=== PATIENT | male | born 1990 | race Caucasian/White ===

== ENCOUNTER 2020-04-19 14:17 | Emergency (ER) | payer BC ==
[2020-04-19 14:24] VITALS: BP 164/114; PULSE 106
[2020-04-19] MEDS ORDERED: Aspirin 81 MG Tab.Chew PO ONE (15:12)
[2020-04-19] MEDS ORDERED: LORazepam 1 MG Tab PO ONE (15:12)
--- NOTE | 2020-04-19 15:44 | EDM.PDOC ---
ED HPI GENERAL MEDICAL PROBLEM - General Chief Complaint: Chest Pain Stated Complaint: CHEST PAIN AND RAPID HEART RATE Time Seen by Provider: 04/19/20 15:03 Source of Information: Reports: Patient, RN Notes Reviewed History Limitations: Reports: No Limitations - History of Present Illness INITIAL COMMENTS - FREE TEXT/NARRATIVE: Patient is a 29-year-old male presenting to the emergency department with complaints of left-sided chest pain, pain in his left neck, and tingling down his left arm. Onset of symptoms were proximate 1300 this afternoon. He had worsening of symptoms after he was done a lunch. He states that he is been under quite a bit of stress lately. He is currently going through divorce. He has had mild episodes similar to this but nothing ever to this extent. He states that he does feel anxious. He has intermittent palpitations in his chest. He denies any significant cardiac history. Left Chest Pain Score (Numeric/FACES): 2 - Related Data Allergies Allergy/AdvReac Type Severity Reaction Status Date / Time acetaminophen [From Percocet] Allergy Disorientat Verified 04/19/20 14:25 ion oxycodone HCl [From Percocet] Allergy Disorientat Verified 04/19/20 14:25 ion Home Meds: Home Meds LORazepam [Ativan] 0.5 mg PO TID PRN #10 tab 04/19/20 [Rx] Ranitidine HCl 150 mg PO DAILY 04/19/20 [History] Past Medical History - Past Health History Medical/Surgical History: Denies Medical/Surgical History HEENT History: Reports: Epistaxis Social & Family History - Family History Family Medical History: No Pertinent Family History - Tobacco Use Tobacco Use Status *Q: Current Every Day Tobacco User Years of Tobacco use: 15 Packs/Tins Daily: 1 - Caffeine Use Caffeine Use: Reports: None - Recreational Drug Use Recreational Drug Use: No ED ROS GENERAL - Review of Systems Review Of Systems: See Below Constitutional: Reports: No Symptoms. Denies: Fever, Chills, Weakness HEENT: Reports: No Symptoms Respiratory: Reports: Shortness of Breath. Denies: Cough Cardiovascular: Reports: Chest Pain, Palpitations. Denies: Dyspnea on Exertion, Lightheadedness, Syncope Endocrine: Reports: No Symptoms GI/Abdominal: Reports: No Symptoms. Denies: Abdominal Pain, Nausea, Vomiting : Reports: No Symptoms Musculoskeletal: Reports: No Symptoms Skin: Reports: No Symptoms Neurological: Reports: Paresthesia (Tingling in his left arm) Psychiatric: Reports: No Symptoms Hematologic/Lymphatic: Reports: No Symptoms Immunologic: Reports: No Symptoms ED EXAM, GENERAL - Physical Exam Exam: See Below General Appearance: Alert, WD/WN, Anxious Respiratory/Chest: No Respiratory Distress, Lungs Clear, Normal Breath Sounds, No Accessory Muscle Use, Chest Non-Tender Cardiovascular: Normal Peripheral Pulses, Regular Rate, Rhythm, No Edema, No Gallop, No JVD, No Murmur, No Rub Neurological: Alert, Oriented, CN II-XII Intact, Normal Cognition, Normal Gait, Normal Reflexes, No Motor/Sensory Deficits Psychiatric: Normal Affect, Normal Mood Skin Exam: Warm, Dry, Intact, Normal Color, No Rash #1 Interpretation EKG Date: 04/19/20 Time: 14:31 Rhythm: NSR Rate (Beats/Min): 96 [place]: Normal P-Wave: Present QRS: Normal ST-T: Normal QT: Normal Course - Vital Signs Last Recorded V/S: Last Vital Signs Temp 97.0 F 04/19/20 14:21 Pulse 106 H 04/19/20 14:21 Resp 20 04/19/20 14:21 BP 164/114 H 04/19/20 14:21 Pulse Ox 99 04/19/20 14:21 - Orders/Labs/Meds Orders: Active Orders 24 hr Category Date Time Status EKG Documentation Completion [RC] ASDIRECTED Care 04/19/20 14:36 Active EKG 12 Lead [EK] Stat Ther 04/19/20 14:31 Ordered Labs: Laboratory Tests 04/19/20 04/19/20 04/19/20 Range/Units 15:25 15:25 15:25 WBC 8.81 (4.23-9.07) K/mm3 RBC 4.95 (4.63-6.08) M/mm3 Hgb 15.8 (13.7-17.5) gm/dl Hct 47.0 (40.1-51.0) % MCV 94.9 H (79.0-92.2) fl MCH 31.9 (25.7-32.2) pg MCHC 33.6 (32.2-35.5) g/dl RDW Std Deviation 43.8 (35.1-43.9) fL Plt Count 199 (163-337) K/mm3 MPV 11.2 (9.4-12.3) fl Neut % (Auto) 77.7 H (34.0-67.9) % Lymph % (Auto) 12.1 L (21.8-53.1) % [place] % (Auto) 9.1 (5.3-12.2) % Eos % (Auto) 0.7 L (0.8-7.0) Baso % (Auto) 0.2 (0.1-1.2) % Neut # (Auto) 6.84 H (1.78-5.38) K/mm3 Lymph # (Auto) 1.07 L (1.32-3.57) K/mm3 [place] # (Auto) 0.80 (0.30-0.82) K/mm3 Eos # (Auto) 0.06 (0.04-0.54) K/mm3 Baso # (Auto) 0.02 (0.01-0.08) K/mm3 D-Dimer, Quantitative < 0.19 L (0.19-0.50) mg/L Sodium 137 (136-145) mEq/L Potassium 3.6 (3.5-5.1) mEq/L Chloride 100 (98-107) mEq/L Carbon Dioxide 27 (21-32) mEq/L Anion Gap 13.6 (5-15) BUN 14 (7-18) mg/dL Creatinine 1.0 (0.7-1.3) mg/dL Est Cr Clr Drug Dosing 129.10 mL/min Estimated GFR (MDRD) > 60 (>60) mL/min BUN/Creatinine Ratio 14.0 (14-18) Glucose 124 H (74-106) mg/dL Calcium 9.1 (8.5-10.1) mg/dL Total Bilirubin 0.8 (0.2-1.0) mg/dL AST 103 H (15-37) U/L ALT 166 H (16-63) U/L Alkaline Phosphatase 54 (46-116) U/L Troponin I < 0.017 (0.00-0.056) ng/mL C-Reactive Protein 0.4 (<1.0) mg/dL Total Protein 7.5 (6.4-8.2) g/dl Albumin 4.1 (3.4-5.0) g/dl Globulin 3.4 gm/dL Albumin/Globulin Ratio 1.2 (1-2) Meds: Medications Discontinued Medications Generic Name Dose Route Start Last Admin Trade Name Mao PRN Reason Stop Dose Admin Aspirin 324 mg 04/19/20 15:12 04/19/20 15:25 Aspirin PO 04/19/20 15:13 324 mg ONETIME ONE Administration Lorazepam 1 mg 04/19/20 15:12 04/19/20 15:26 Ativan PO 04/19/20 15:13 1 mg ONETIME ONE Administration - Re-Assessments/Exams Free Text/Narrative Re-Assessment/Exam: Is a 29-year-old male presenting to the emergency department with complaints of left-sided chest pain, as well as pain in his neck and tingling in his left arm. He has had problems with mild similar symptoms, however never to this degree. Symptoms started around 1300 this afternoon. He does state that he has been going through a divorce and has been under quite a bit of stress lately. He is also been drinking more alcohol than he normally does. Denies any significant cardiac history. On exam, chest is nontender. He does peer to be anxious. I ordered a cardiac work-up including CBC, CMP, CRP, troponin, D-dimer, EKG, chest x-ray. We will give him aspirin 324 mg p.o., as well as Ativan 1 mg p.o. 04/19/20 17:22 Patient's work-up was grossly unremarkable. EKG showed normal sinus rhythm. Chest x-ray was normal. Hematology was normal. Troponin and D-dimer were negative. Liver enzymes were slightly elevated. Discussed these findings with the patient. He is feeling much better after the Ativan. Discussed the option of having him stay to repeat the troponin III hours after the original, however he declined this. I will write a prescription for Ativan 0.5 mg 3 times daily as needed. Recommend that he cut back on his drinking. Discussed that he should not drink alcohol while taking this medication. Discussed return preca utions. Discharge instructions as documented. Departure - Departure Time of Disposition: 17:25 Disposition: Home, Self-Care 01 Condition: Good Clinical Impression: Atypical chest pain, Anxiety Prescriptions: LORazepam [Ativan] 0.5 mg PO TID PRN #10 tab PRN Reason: Anxiety Instructions: Nonspecific Chest Pain, Adult, Managing Anxiety, Adult Referrals: PCP,None [Primary Care Provider] - Forms: ED Department Discharge Additional Instructions: You were seen in the emergency department today with regards to chest pain. Yo ur work-up included blood work, an EKG of your heart, and chest x-ray. Results your work-up were found to be normal. There is no signs that you are having a heart attack and you do not have a blood clot in your lungs. While in the ER, you received aspirin as well as Ativan for anxiety. This did improve your symptoms. As we discussed, the symptoms you experienced today are likely related to the increased stress that you have been under recently. A prescription for Ativan has been provided. Take this medication as prescribed. Recommend that you decrease your alcohol intake and do not consume alcohol while taking this medication. If you should experience any worsening symptoms, please not hesitate to return to the emergency department for reevaluation. If you feel that you need to be on a long-term medication for your anxiety, would recommend that you establish care in the clinic with a primary care provider. Sepsis Event Note (ED) - Evaluation Sepsis Screening Result: No Definite Risk - Focused Exam Vital Signs: Vital Signs Temp Pulse Resp BP Pulse Ox 04/19/20 14:21 97.0 F 106 H 20 164/114 H 99 - My Orders Last 24 Hours: My Active Orders 04/19/20 14:31 EKG 12 Lead [EK] Stat 04/19/20 14:36 EKG Documentation Completion [RC] ASDIRECTED - Assessment/Plan Last 24 Hours: My Active Orders 04/19/20 14:31 EKG 12 Lead [EK] Stat 04/19/20 14:36 EKG Documentation Completion [RC] ASDIRECTED
--- NOTE | 2020-04-19 15:58 | CR ---
PROCEDURE INFORMATION: Exam: XR Chest, 2 Views Exam date and time: 04/19/2020 3:14 PM Age: 29 years old Clinical indication: Chest pain TECHNIQUE: Imaging protocol: XR of the chest Views: 2 views. COMPARISON: No relevant prior studies available. FINDINGS: Lungs: Unremarkable. No consolidation. Pleural space: Unremarkable. No pleural effusion. No pneumothorax. Heart/Mediastinum: Unremarkable. No cardiomegaly. Bones/joints: Unremarkable. IMPRESSION: No acute findings. Thank you for allowing us to participate in the care of your patient. Dictated and Authenticated by: Kirby Camacho DO 04/19/2020 4:21 PM Central Time ([place] & [place]) MTDAlanna
== END 2020-04-19 17:50 | disposition home or self-care (01) ==
LOC: JD.ED 14:17
DX: F41.9 Anxiety disorder, unspecified (principal); F17.210 Nicotine dependence, cigarettes, uncomplicated; Z88.6 Allergy status to analgesic agent; Z88.5 Allergy status to narcotic agent
CPT/HCPCS: 36415; 71046; 80053; 84484; 85025; 85379; 86140; 93005; 99285; A9270

== ENCOUNTER 2022-06-14 12:15 | Day surgery (SDC) | payer BC ==
[~2022-06-14 12:15] MED LIST: Dexamethasone 4 MG/ML 5 ML MDV ONE; HYDROmorphone 0.5 MG/0.5 ML Syringe ONE; Ketorolac 30 MG/ML SDV ONE; Lactated Ringers 1,000 ML IV SCH; Lidocaine 1% 6 ML ONE; Lidocaine 1%/Sod Bicarbonate in NS 8.4% 1 ML Syringe IDERM PRN; Midazolam 1 MG/ML 2 ML SDV ONE; Neostigmine Methylsulfate 10 MG/10 ML MDV ONE; Ondansetron 4 MG/2 ML SDV ONE; Propofol 200 MG/20 ML SDV ONE; Rocuronium 50 MG/5 ML Vial ONE; Sodium Chloride 0.9% 10 ML Syringe FLUSH PRN; Sodium Chloride 0.9% 10 ML Syringe FLUSH SCH; fentaNYL 100 MCG/2 ML SDV ONE
[2022-06-14] MEDS: Lidocaine 1% 30 ML SDV ONE ×2 (15:14→16:21)
[2022-06-14] MEDS: Bupivacaine 0.5%/EPINEPHrine 1:200,000 50 ML MDV ONE ×2 (15:14→16:25)
[2022-06-14] MEDS: Bacitracin Oint 15 GM Tube ONE ×2 (15:50→16:21)
[2022-06-14] MEDS ORDERED: HYDROmorphone 0.5 MG/0.5 ML Syringe IVPUSH PRN (16:26)
[2022-06-14] MEDS ORDERED: Ondansetron 4 MG/2 ML SDV IVPUSH PRN (16:26)
[2022-06-14] MEDS ORDERED: fentaNYL 100 MCG/2 ML SDV IVPUSH PRN (16:26)
[2022-06-14 17:39] VITALS: BP 109/74
[2022-06-14 17:41] VITALS: PULSE 58
== END 2022-06-14 17:45 | disposition home or self-care (01) ==
LOC: JD.SDS 12:15
PROVIDERS: ATTEND Surgery
DX: L02.31 Cutaneous abscess of buttock (principal); F41.9 Anxiety disorder, unspecified; K21.9 Gastro-esophageal reflux disease without esophagitis; F17.220 Nicotine dependence, chewing tobacco, uncomplicated; F32.9 Major depressive disorder, single episode, unspecified; Z98.890 Other specified postprocedural states; Z79.899 Other long term (current) drug therapy; Z88.8 Allergy status to other drugs, medicaments and biological substances
CPT/HCPCS: 11044; A9270; J1100; J1170; J1885; J2250; J2405; J2704; J2710; J3010; J3490; J7120; 00902